=== PATIENT | female | born 1950 | race Caucasian/White ===

== ENCOUNTER 2020-03-21 09:55 | Outpatient (CLI) | payer MEDICARE, SELFPAY ==
--- NOTE | ~2020-03-21 | DEXA_ITS ---
Bone Density Report Name: Nereida Manley Age: 70 Sex: Female Ethnicity: White Date of : 1950 Indication: osteopenia; height loss; Referring Provider: Solitario Anderson Study: Bone densitometry was performed. Exam Date: March 21, 2020 Accession number: [id number] Bone Density: Region BMD T-score Z-score Classification AP Spine (L1-L4) 0.856 -1.7 0.4 Osteopenia Femoral Neck (Left) 0.594 -2.3 -0.5 Osteopenia Total Hip (Left) 0.799 -1.2 0.3 Osteopenia Total Hip Bilateral Avg 0.787 -1.3 0.2 Osteopenia Femoral Neck (Right) 0.589 -2.3 -0.5 Osteopenia Total Hip (Right) 0.773 -1.4 0.1 Osteopenia World Health Organization criteria for BMD impression classify patients as: Normal (T-score at or above -1.0), Osteopenia (T-score between -1.0 and -2.5), or Osteoporosis (T-score at or below -2.5). 10-year Fracture Risk(1): Major Osteoporotic Fracture 13% Hip Fracture 2.9% Reported Risk Factors: [place] (), Neck BMD=0.589, BMI=26.2 (1) FRAX(R) Version 3.08. Fracture probability calculated for an untreated patient. Fracture probability may be lower if the patient has received treatment. Previous Exams: Region Exam Age BMD T-score BMD Change BMD Change Date g/cm2 vs Baseline vs Previous AP Spine(L1-L4) 03/21/2020 70 0.856 -1.7 -0.088(-9.3%)# -0.007(-0.8%) 08/02/2017 67 0.862 -1.7 -0.082(-8.7%)# 0.015(1.8%) 02/15/2014 64 0.847 -1.8 -0.097(-10.2%) -0.060(-6.6%)# 05/10/2007 57 0.907 -1.3 -0.037(-3.9%)* 0.004(0.5%) 04/18/2004 54 0.903 -1.3 -0.041(-4.4%)* -0.041(-4.4%)* 12/22/2002 52 0.944 -0.9 Total Hip(Left) 03/21/2020 70 0.799 -1.2 -0.071(-8.2%)# -0.067(-7.7%)* 08/02/2017 67 0.866 -0.6 -0.004(-0.5%)# 0.004(0.5%) 02/15/2014 64 0.862 -0.7 -0.009(-1.0%)# 0.019(2.2%)# 05/10/2007 57 0.843 -0.8 -0.027(-3.1%) -0.024(-2.8%) 04/18/2004 54 0.867 -0.6 -0.003(-0.4%) -0.003(-0.4%) 12/22/2002 52 0.870 -0.6 Total Hip(Right) 03/21/2020 70 0.773 -1.4 -0.050(-6.1%)# -0.042(-5.2%)* 08/02/2017 67 0.815 -1.0 -0.008(-0.9%)# 0.028(3.6%)* 02/15/2014 64 0.787 -1.3 -0.036(-4.4%)# -0.009(-1.1%)# 05/10/2007 57 0.796 -1.2 -0.028(-3.4%)* 0.000(-0.1%) 04/18/2004 54 0.796 -1.2 -0.027(-3.3%) -0.027(-3.3%) 12/22/2002 52 0.823 -1.0 *Denotes significance at 95% confidence level, LSC for AP Spine = 0.022 g/cm2, LSC for Total Hip = 0.027 g/cm2 Clinical Information Provided by Patient: Has used
== END 2020-03-21 09:56 | disposition home or self-care (01) ==
LOC: ANHIMG 09:58
PROVIDERS: PCP Family Medicine; Visit Provider Physician Assistant
DX: M85.89 Other specified disorders of bone density and structure, multiple sites (principal); M16.0 Bilateral primary osteoarthritis of hip; E03.9 Hypothyroidism, unspecified; F33.42 Major depressive disorder, recurrent, in full remission; E78.2 Mixed hyperlipidemia
CPT/HCPCS: 77080

== ENCOUNTER 2020-03-28 07:55 | Outpatient (CLI) | payer MEDICARE, SELFPAY ==
--- NOTE | ~2020-03-28 | MM_ITS ---
EXAMINATION: MM screening [facility] BI w davina HISTORY: Screening TECHNIQUE: Craniocaudal and mediolateral oblique 3-D tomosynthesis images were obtained and synthetic 2-D images were generated. CAD analysis was submitted and interpreted. COMPARISON: Comparison to multiple prior studies sequentially, with oldest reviewed study dated 08/01. BREAST PARENCHYMAL COMPOSITION: The breasts are heterogenously dense, which may obscure small masses. FINDINGS: There is no evidence of suspicious mass, calcification, or architectural distortion to sugg est malignancy in either breast. There has been no suspicious interval change. IMPRESSION: 1. No mammographic evidence of malignancy. 2. Recommend routine screening mammography in one year. BI-RADS Category 1: Negative Reviewed, dictated and finalized at location A. UNICATION TECHNICIAN
== END 2020-03-28 07:56 | disposition home or self-care (01) ==
LOC: ANHIMG 07:58
PROVIDERS: PCP Family Medicine; Visit Provider Family Medicine
DX: Z12.31 Encounter for screening mammogram for malignant neoplasm of breast (principal)
CPT/HCPCS: 77063; 77067

== ENCOUNTER 2020-11-02 17:26 | Emergency (ER) | payer MEDICARE, SELFPAY ==
--- NOTE | ~2020-11-02 | XR_ITS ---
EXAMINATION: XR foot RT min 3V DATE: 11/02/2020 17:44 INDICATION: Right foot injury. TECHNIQUE: 4 views of right foot were obtained. COMPARISON: Right foot radiographs 05/06/2009 FINDINGS: Bone alignment is normal. No fracture. There is mild osteoarthritis of first metatarsophala ngeal joint and some of the interphalangeal joints and midfoot joints. IMPRESSION: 1. Mild polyarticular osteoarthritis. Reviewed, dictated and finalized at location A.
[2020-11-02 17:27] VITALS: BP 134/50; PULSE 64; RESP 18; TEMP 36.1; O2SAT 98
[2020-11-02 19:50] VITALS: BP 127/64; PULSE 62; RESP 17; TEMP 36.6; O2SAT 100
--- NOTE | 2020-11-02 20:37 | ED.WOUNDLAC ---
HPI - Wound/Laceration General Chief Complaint: Wound/Laceration Stated Complaint: FOOT WOUND Time Seen by Provider: 11/02/20 19:42 History of Present Illness HPI narrative: Patient is a 70-year-old female who presents ER with laceration to her left foot. There is a top aspect of her foot near the first MTP. No numbness or tingling. Cleaned it out at home. She dropped pruning tara onto her barefoot while working in her garden. No numbness or tingling. Tetanus up-to-date. Related Data Home Medications Medication Instructions Recorded Confirmed ascorbate calcium (vitamin C) 500 1 g PO DAILY tablet 10/14/20 10/14/20 mg tablet aspirin 81 mg tablet,delayed 81 mg PO DAILY 10/14/20 10/14/20 release cholecalciferol (vitamin D3) 50 50 mcg PO DAILY 10/14/20 10/14/20 mcg (2,000 unit) capsule coenzyme Q10 10 mg capsule 10 mg PO ONCE 10/14/20 10/14/20 fexofenadine 60 mg tablet 60 mg PO Q12H 10/14/20 10/14/20 propylene glycol 0.6 % eye drops 1 drp EACH EYE DAILY PRN 10/14/20 10/14/20 vitamin B complex 1 cap PO DAILY 10/14/20 10/14/20 Allergies Allergy/AdvReac Type Severity Reaction Status Date / Time tetracycline Allergy Unknown UPSET Verified 11/02/20 17:27 STOMACH Review of Systems Musculoskeletal: Musculoskeletal: Denies arthralgias, Denies joint swelling and Denies muscle cramps Comments: Great toe pain Integumentary/Breasts: Skin/Breast: Denies erythema and Denies rash Comments: Foot laceration Neurologic: Denies focal weakness, Denies numbness and Denies weakness PMFSH Past Medical History Medical History (Updated 11/02/20 @ 20:39 by Dread Gustafson MD) Hypothyroidism, unspecified Irritable bowel syndrome without diarrhea Major depressive disorder, recurrent, unspecified Mixed hyperlipidemia Surgical History Surgical History H/O breast biopsy H/O oophorectomy Hx of removal of ovary Family History Family History Father Family history of multiple sclerosis, Onset Age: 43 Hypertension Mother Family history of restless legs syndrome, Onset Age: 87 Social History Social History Gender identity (if verbalized by the patient): Female Exam Narrative: GENERAL: Well-appearing, well-nourished, and in no acute distress. HEAD: Normocephalic, atraumatic. EXTREMITIES: Normal range of motion of toes left foot. Normal strength, no edema. SKIN: Warm, dry, no rash. 1.5 cm laceration is superficial to the dorsum of the left foot. NEURO: Alert and oriented x3. PSYCH: Normal mood and affect. Course Course Emergency Course: Wound repaired. Discharge home. Vital Signs Vital signs: Vital Signs Temperature 97 F L 11/02/20 17:27 Pulse Rate 64 11/02/20 17:27 Respiratory Rate 18 11/02/20 17:27 Blood Pressure 134/50 L 11/02/20 17:27 Pulse Oximetry 98 11/02/20 17:27 Temperature 97.8 F 11/02/20 19:50 Pulse Rate 62 11/02/20 19:50 Respiratory Rate 17 11/02/20 19:50 Blood Pressure 127/64 11/02/20 19:50 Pulse Oximetry 100 11/02/20 19:50 Procedures Laceration Laceration 1: Date: 11/02/20 Time: 20:30 Site: lower extremity Side (If applicable): left Size (cm): 1.5 Description: linear and clean Depth: simple, single layer Local Anesthetic: lidocaine 1% and with epi Amount of anesthesia used (mL): 2 Pre-repair: irrigated ====== Skin Level ====== Skin layer closed with: nylon Size (cm): 4-0 Number of sutures: 3 Technique: simple, interrupted ====== Subcutaneous Layer ====== ====== Muscle Layer ====== ====== Tendon Layer ====== MDM - Wound/Laceration Imaging Data Radiologist's impression: ITS Impressions Foot X-Ray 11/02/20 17:44 IMPRESSION: 1. Mild polyarticular
== END 2020-11-02 20:48 | disposition home or self-care (01) ==
PROVIDERS: Emergency Provider Emergency Medicine; PCP Family Medicine
DX: S91.312A Laceration without foreign body, left foot, initial encounter (principal); E03.9 Hypothyroidism, unspecified; E78.5 Hyperlipidemia, unspecified; Z79.82 Long term (current) use of aspirin; W27.1XXA Contact with garden tool, initial encounter; Y92.007 Garden or yard of unspecified non-institutional (private) residence as the place of occurrence of the external cause
CPT/HCPCS: 12001; 73630; 99283

== ENCOUNTER 2021-05-25 10:50 | Outpatient (CLI) | payer MEDICARE, SELFPAY ==
--- NOTE | ~2021-05-25 | XR_ITS ---
EXAMINATION: XR shoulder RT min 2V DATE: 05/25/2021 11:11 INDICATION: Right shoulder pain. TECHNIQUE: 4 views of right shoulder were obtained. COMPARISON: None. FINDINGS: Bone alignment is normal. No fracture. There is moderate osteoarthritis of glenohumeral darshan nt and mild osteoarthritis of acromioclavicular joint. IMPRESSION: 1. Polyarticular osteoarthritis. Reviewed, dictated and finalized at location A.
--- NOTE | ~2021-05-25 | XR_ITS ---
EXAMINATION: XR shoulder LT min 2V DATE: 05/25/2021 11:11 INDICATION: Left shoulder pain. TECHNIQUE: 4 views of left shoulder were obtained. COMPARISON: None. FINDINGS: Bone alignment is normal. No fracture. There is moderate osteoarthritis of glenohumeral darshan nt and mild osteoarthritis of acromioclavicular joint. IMPRESSION: 1. Polyarticular osteoarthritis. Reviewed, dictated and finalized at location A.
== END 2021-05-25 10:51 | disposition home or self-care (01) ==
LOC: ANHIMG 10:53
PROVIDERS: PCP Family Medicine; Visit Provider Family Medicine
DX: M19.011 Primary osteoarthritis, right shoulder (principal); M19.012 Primary osteoarthritis, left shoulder
CPT/HCPCS: 73030

== ENCOUNTER 2021-06-10 09:58 | Outpatient (CLI) | payer MEDICARE, SELFPAY ==
--- NOTE | ~2021-06-10 | MM_ITS ---
EXAMINATION: MM screening [facility] BI w davina HISTORY: Screening mammogram TECHNIQUE: Craniocaudal and mediolateral oblique 3-D tomosynthesis images were obtained and synthetic 2-D images were generated. CAD analysis was submitted and interpreted. COMPARISON: Prior mammograms dating back to 05/20/2016 BREAST PARENCHYMAL COMPOSITION: There are scattered areas of fibroglandular density. FINDINGS: There is no suspicious mass, calcification, or architectural distortion to suggest malignan cy in either breast. There has been no suspicious interval change. IMPRESSION: 1. No mammographic evidence of malignancy. 2. Recommend routine screening mammography in one year. BI-RADS Category 1: Negative Reviewed, dictated and finalized at location A.
== END 2021-06-10 09:59 | disposition home or self-care (01) ==
PROVIDERS: PCP Family Medicine; Visit Provider Family Medicine
DX: Z12.31 Encounter for screening mammogram for malignant neoplasm of breast (principal)
CPT/HCPCS: 77063; 77067

== ENCOUNTER 2021-07-08 07:45 | Outpatient (CLI) | payer MEDICARE, SELFPAY | END 2021-07-08 07:46 | disposition home or self-care (01) | LOC: ANHAUDIO 07:46 | PROVIDERS: PCP Family Medicine; Visit Provider Otolaryngology | DX: H69.83 Other specified disorders of Eustachian tube, bilateral (principal); H93.8X9 Other specified disorders of ear, unspecified ear | CPT/HCPCS: 92557; 92567 ==

== ENCOUNTER → 2022-06-01 09:21 | Outpatient (CLI) | payer MEDICARE, SELFPAY | PROVIDERS: PCP Family Medicine; Visit Provider Family Medicine | DX: M79.672 Pain in left foot (principal) | CPT/HCPCS: 73630 ==

== ENCOUNTER → 2022-06-04 15:20 | Outpatient (CLI) | payer MEDICARE, SELFPAY ==
--- NOTE | ~2022-06-04 | CT_ITS ---
EXAMINATION: CT sinus wo con DATE: 06/04/2022 15:33 INDICATION: Chronic sinusitis for 3 years TECHNIQUE: Computed tomography (CT) of the paranasal sinuses was performed without contrast. Iterativ e reconstruction technique was employed. Exam dose: 280.89 mGy-cm total exam DLP. COMPARISON: None FINDINGS: S-shaped nasal septum, bowed prominently to the right superiorly and mildly to the left inf eriorly. Bilateral middle nasal turbinate korin bullosa, more prominent on the left. Prominent soft tissue swelling of the inferior nasal turbinates. The ostiomeatal units are patent bilaterally. Normal development and aeration of the paranasal sinuses and mastoid air cells. IMPRESSION: Rightward borderline upper nasal septum, leftward bowing of lower nasal septum Prominent nasal turbinates Bilateral middle nasal turbinate korin bullosa Patent paranasal sinuses, ostiomeatal units and mastoid air cells Reviewed, dictated and finalized at Location A. Reviewed, dictated and finalized at location A.
== END ==
PROVIDERS: PCP Family Medicine; Visit Provider Family Medicine
DX: J32.9 Chronic sinusitis, unspecified (principal); J34.2 Deviated nasal septum; J34.3 Hypertrophy of nasal turbinates; J34.89 Other specified disorders of nose and nasal sinuses
CPT/HCPCS: 70486

== ENCOUNTER 2022-10-28 14:52 | Outpatient (CLI) | payer MEDICARE, SELFPAY ==
--- NOTE | ~2022-10-28 | DEXA_ITS ---
Bone Density Report Name: SHEMAR DIOP Age: 72 Sex: Female Ethnicity: White Date of : 1950 Indication: osteopenia; height loss; postmenopausal Referring Provider: JOELLE GOMEZ Study: Bone densitometry was performed. Exam Date: October 28, 2022 Accession number: [id number] Bone Density: Region BMD T-score Z-score Classification AP Spine(L1-L4) 0.856 -1.7 0.5 Osteopenia Femoral Neck (Left) 0.637 -1.9 0.0 Osteopenia Total Hip (Left) 0.887 -0.5 1.2 Normal Femoral Neck (Right) 0.552 -2.7 -0.7 Osteoporosis Total Hip (Right) 0.758 -1.5 0.1 Osteopenia Total Hip Mean 0.823 -1.0 0.7 Normal World Health Organization criteria for BMD impression classify patients as: Normal (T-score at or above -1.0), Osteopenia (T-score between -1.0 and -2.5), or Osteoporosis (T-score at or below -2.5). 10-year Fracture Risk: FRAX not reported because: Some T-score for Spine Total or Hip Total or Femoral Neck at or below -2.5 Previous Exams: Region Exam Age BMD T-score BMD Change BMD Change Date g/cm2 vs Baseline vs Previous AP Spine (L1-L4) 10/28/2022 72 0.856 -1.7 -0.006 (-0.7%) 0.001 (0.1%) 03/21/2020 70 0.856 -1.7 -0.007 (-0.8%) -0.007 (-0.8%) 08/02/2017 67 0.862 -1.7 Total Hip(Left) 10/28/2022 72 0.887 -0.5 0.021 (2.4%) 0.088 (11.0%)* 03/21/2020 70 0.799 -1.2 -0.067 (-7.7%) -0.067 (-7.7%) 08/02/2017 67 0.866 -0.6 Total Hip(Right) 10/28/2022 72 0.758 -1.5 -0.057 (-7.0%) -0.015 (-2.0%) 03/21/2020 70 0.773 -1.4 -0.042 (-5.2%) -0.042 (-5.2%) 08/02/2017 67 0.815 -1.0 *Denotes significance at 95% confidence level, LSC for AP Spine = 0.022 g/cm2, LSC for Total Hip = 0.027 g/cm2 Clinical Information Provided by Patient: Has used the following medications: Vitamin D, Calcium Patient maximum height was 64.5 Menopause Age: 52 No regular weight bearing exercise Onset of menses at age 12 Number of children 0 Impression: The patient has osteoporosis, based on the Right Femoral Neck T-score. No significant bone loss was observed. Discussion: INCREASED RISK OF FRACTURE. BONE DENSITY IS UNDESIRABLY LOW AT ONE OR MORE SKELETAL SITES, CONSISTENT WITH POSTMENOPAUSAL OSTEOPOROSIS. This patient's lowest T-score meets the World Health Organization's (WHO) criteria for osteoporosis at one or more sites (T-score -2.5 or below). In untreated patients, the risk of osteoporotic fracture increases approximatel
--- NOTE | ~2022-10-28 | MM_ITS ---
EXAMINATION: MM screening [facility] BI w davina HISTORY: Screening TECHNIQUE: Craniocaudal and mediolateral oblique 3-D tomosynthesis images were obtained and synthetic 2-D images were generated. CAD analysis was submitted and interpreted. COMPARISON: Comparison to multiple prior studies sequentially, with oldest reviewed study dated 04/08. BREAST PARENCHYMAL COMPOSITION: The breasts are heterogeneously dense, which may obscure small masses FINDINGS: There is no evidence of suspicious mass, calcification, or architectural distortion to sugg est malignancy in either breast. There has been no suspicious interval change. IMPRESSION: 1. No mammographic evidence of malignancy. 2. Recommend routine screening mammography in one year. BI-RADS Category 1: Negative Reviewed, dictated and finalized at location A.
== END 2022-10-28 14:53 | disposition home or self-care (01) ==
PROVIDERS: PCP Family Medicine; Visit Provider Family Medicine
DX: Z12.31 Encounter for screening mammogram for malignant neoplasm of breast (principal); Z78.0 Asymptomatic menopausal state; M85.89 Other specified disorders of bone density and structure, multiple sites; M81.0 Age-related osteoporosis without current pathological fracture
CPT/HCPCS: 77063; 77067; 77080

== ENCOUNTER 2024-01-06 14:48 | Outpatient (CLI) | payer MEDICARE, SELFPAY ==
--- NOTE | ~2024-01-06 | MM_ITS ---
EXAMINATION: MM screening [facility] BI w davina HISTORY: Screening TECHNIQUE: Craniocaudal and mediolateral oblique 3-D tomosynthesis images were obtained and synthetic 2-D images were generated. CAD analysis was submitted and interpreted. COMPARISON: Comparison to multiple prior studies sequentially, with oldest reviewed study dated 11/2016. BREAST PARENCHYMAL COMPOSITION: Dense: The breasts are heterogeneously dense, which may obscure small masses FINDINGS: There is no evidence of suspicious mass, calcification, or architectural distortion to sugg est malignancy in either breast. There has been no suspicious interval change. IMPRESSION: 1. No mammographic evidence of malignancy. 2. Recommend routine screening mammography in one year. BI-RADS Category 1: Negative Reviewed, dictated and finalized at location B.
== END 2024-01-06 14:49 | disposition home or self-care (01) ==
LOC: ANHIMG 14:52
PROVIDERS: PCP Family Medicine; Visit Provider Family Medicine
DX: Z12.31 Encounter for screening mammogram for malignant neoplasm of breast (principal)
CPT/HCPCS: 77063; 77067